=== PATIENT | male | born 1985 | race Hispanic/Latino ===

== ENCOUNTER 2023-11-26 16:45 | Emergency (ER) | payer OTHER, SELFPAY ==
[2023-11-26 17:01] VITALS: BP 127/73; PULSE 78; RESP 16; TEMP 36.4; O2SAT 97; BMI 32.8
--- NOTE | 2023-11-26 17:03 | DI.RAD.S_ITS ---
PROCEDURE: XR TOE RT MIN 2V INDICATIONS: pain dropped propane tank TECHNIQUE: 3 views of the 1st toe(s) acquired. COMPARISON: None. FINDINGS: Bones: Comminuted fracture of the 1st distal phalanx. No intra-articular extension is visualized radiographically. Soft tissues: No suspicious soft tissue densities. IMPRESSION: First distal phalanx comminuted fracture. Approved by: Mireya Taylor M.D.,Ph.D. on 11/26/2023 at 18:43
[2023-11-26 17:09] VITALS: PULSE 68
--- NOTE | 2023-11-26 20:35 | ED_ITS ---
HPI - Extremity Injury (Lower) General Chief Complaint: Extremity Injury, Lower Stated Complaint: Dropped Propane Tank on R Foot, Diabetic Time Seen by Provider: 11/26/23 17:10 Source: patient Mode of arrival: Ambulatory History of Present Illness HPI Narrative: 38-year-old male presents for right great toe injury. He was at work and a heavy propane tank dropped on his foot. He was concerned because he is a diabetic and wants to make sure that his foot will be okay Related Data Previous Rx's Medication Instructions Recorded hydrocodone 5 mg-acetaminophen 325 1 tab PO Q8H PRN pain #5 tabs 11/26/23 mg tablet Allergies Allergy/AdvReac Type Severity Reaction Status Date / Time No Known Drug Allergies Allergy Verified 11/26/23 17:03 Patient History Social History Smoking Status: Never smoker Smoking Status: Never smoker alcohol intake frequency: 0-2 drinks per day Substance Use Type: does not use Exam Initial Vital Signs Initial Vital Signs: Vital Signs Temperature 97.6 F 11/26/23 17:01 Pulse Rate 78 11/26/23 17:01 Respiratory Rate 16 11/26/23 17:01 Blood Pressure 127/73 11/26/23 17:01 Pulse Oximetry 97 11/26/23 17:01 Oxygen Delivery Method Room Air 11/26/23 17:01 Const: Awake, alert, no acute distress, nontoxic appearing MSK: Bruising R great toe, no subungual hematoma, palpable DP pulses Skin: Warm, Dry, intact Neuro: AO x3, CN II-XII grossly intact, moves all extremities Course Orders Ordered: ED Orders 11/26/23 17:03 XR toe RT min 2V Stat Discontinued Medications Hydrocodone Bitart/Acetaminophen (Hydrocodone/Acet 5/325 Prepack) 1 bottle MISC DIRECTED ONE Stop: 11/26/23 20:38 Last Admin: 11/26/23 20:56 Dose: 1 bottle Documented By: CRISS Vital Signs Vital signs: Vital Signs - 8 hr 11/26/23 17:01 11/26/23 17:09 Temperature 97.6 F Pulse Rate 78 Pulse Rate [Dorsalis Pedis] 68 Respiratory Rate 16 Blood Pressure 127/73 Pulse Oximetry 97 Oxygen Delivery Method Room Air MDM - Extremity Injury (Lower) Imaging Data Extremity x-ray #1: Radiologist's Impression: PROCEDURE: XR TOE RT MIN 2V INDICATIONS: pain dropped propane tank TECHNIQUE: 3 views of the 1st toe(s) acquired. COMPARISON: None. FINDINGS: Bones: Comminuted fracture of the 1st distal phalanx. No intra-articular extension is visualized radiographically. Soft tissues: No suspicious soft tissue densities. IMPRESSION: First distal phalanx comminuted fracture. Approved by: Mireya Taylor M.D.,Ph.D. on 11/26/2023 at 18:43 MDM Narrative Medical decision making narrative: Right great toe injury. X-rays show comminuted fracture. Placed in a hard- soled postop shoe for comfort, given crutches for assistance in ambulation. Rice instructions counseled, short course of pain medication sent to pharmacy of choice. Note for work provided Discharge Plan Departure Patient Disposition: Home Clinical Impression: Fracture of toe Instructions: DI for Toe Fracture Activity Restrictions/Additional Instructions: Wear the shoe when walking around to help support your toe. You may use the crutches if you would like to help you move around. Take Tylenol and ibuprofen as needed for pain, elevate your foot above heart level to help decrease swelling, apply ice for comfort. Prescriptions: New hydrocodone-acetaminophen 5-325 mg tablet 1 tab PO Q8H PRN (Reason: pain) Qty: 5 0RF Stand Alone Forms: Patient Portal/API, Work Release Note
[2023-11-26] MEDS: HYDROCODONE/ACET 5/325 PREPACK 1 BOTTLE MISC (20:56)
== END 2023-11-26 21:01 | disposition home or self-care (01) ==
PROVIDERS: Emergency Provider Emergency Medicine
DX: S92.421A Displaced fracture of distal phalanx of right great toe, initial encounter for closed fracture (principal); W22.8XXA Striking against or struck by other objects, initial encounter
CPT/HCPCS: 73660; 99282; 99283

== ENCOUNTER → 2023-12-05 09:19 | Outpatient (CLI) | payer OTHER, SELFPAY ==
--- NOTE | 2023-12-05 09:21 | DI.US.S_ITS ---
PROCEDURE: US ABDOMEN COMPLETE INDICATIONS: RIGHT UPPER QUADRANT PAIN TECHNIQUE: Real-time scanning was performed of the abdominal and retroperitoneal organs, with image documentation. COMPARISON: None. FINDINGS: Liver: Liver is normal in size and demonstrates increased echogenicity. Gallbladder: No gallstones, pericholecystic fluid or gallbladder thickening. Biliary ducts: Intrahepatic bile ducts are non-dilated. Extrahepatic bile duct caliber measures 4 mm. Normal is 6-7 mm or less in diameter, or 10 mm or less post-cholecystectomy. Pancreas: Visualized portions of the pancreas are sonographically normal. Spleen: Spleen is normal in size and homogeneous in echotexture. Kidneys: Kidneys are normal in size and echotexture. Right kidney measures 12.5 cm long; left kidney measures 12.4 cm long. No hydronephrosis or nephrolithiasis. No solid masses. Aorta: Visualized aorta is normal in caliber at less than 3 cm. Iliacs: Proximal common iliac arteries are normal in caliber at less than 2.5 cm. IVC: Intrahepatic inferior vena cava is patent. Miscellaneous: No free abdominal fluid. IMPRESSION: There is hepatic steatosis. The remainder of the abdomen is within normal limits. Dictated by: Faheem Ahumada M.D. on 12/05/2023 at 14:34 Approved by: Faheem Ahumada M.D. on 12/05/2023 at 14:39
== END ==
PROVIDERS: PCP Nurse Practitioner Family; Referring Provider Nurse Practitioner Family; Visit Provider Nurse Practitioner Family
DX: K76.0 Fatty (change of) liver, not elsewhere classified (principal); E11.9 Type 2 diabetes mellitus without complications
CPT/HCPCS: 76700

== ENCOUNTER 2024-03-05 13:22 | Day surgery (SDC) | payer OTHER, SELFPAY ==
--- NOTE | 2024-03-05 14:12 | PM.HP.1 ---
History of Present Illness History of Present Illness Date Patient Seen: 03/05/24 Chief complaint: Colonoscopy Narrative: Rectal bleeding PFSH Social History Smoking Status: Never smoker Meds Home Medications and Allergies Home Medications Medication Instructions Recorded Confirmed Type hydrocodone 5 mg-acetaminophen 325 1 tab PO Q8H PRN pain #5 tabs 11/26/23 Rx mg tablet empagliflozin 10 mg tablet 10 mg PO DAILY 03/05/24 03/05/24 History (Jardiance) metformin 1,000 mg tablet 1,000 mg PO BID 03/05/24 03/05/24 History Allergies Allergy/AdvReac Type Severity Reaction Status Date / Time No Known Drug Allergies Allergy Verified 03/05/24 13:57 Exam Narrative Exam Narrative: Oropharynx free of lesions Chest clear to auscultation percussion Cardiac exam reveals no S3 or murmur Assessment & Plan Assessment & Plan narrative: Rectal bleeding need for colonoscopy for further workup. Risks, benefits, alternatives have been explained. Time-Based Coding :: [TOTAL MINUTES] spent with patient and on the chart (including review of chart, obtaining history, exam, reviewing outside data, placing orders, documenting exam and treatment plan, and counseling patient) on [DATE].
--- NOTE | 2024-03-05 14:13 | PM.OP.COLON ---
Operative Date/Time/Diagnoses Date of procedure: 03/05/24 Pre-op diagnosis: See indication and findings Procedure & Clinicians Study performed: Colonoscopy Indications: Rectal bleeding Surgeon: Jaime Luna Procedure Notes Procedure in detail: After informed consent was obtained the patient placed left lateral decubitus position. The video colonoscope was inserted into the rectum slowly advanced cecum. Preparation was good. On slow withdrawal mucosa was carefully examined. The scope was removed. The patient tolerated procedure well. Blood loss none Complications none Sedation mac Findings 1. Normal colonoscopy to cecum Presumably patient's bleeding was from a perirectal source such as hemorrhoids which is not visible at this time. At suggest follow-up colonoscopy in 10 years.
[2024-03-05 14:20] VITALS: BP 133/86; PULSE 84; RESP 12; TEMP 36.4; O2SAT 97
[2024-03-05 14:38] VITALS: BP 117/69; PULSE 91; RESP 12; TEMP 36.6; O2SAT 97
[2024-03-05 14:44] VITALS: BP 103/79; PULSE 77; RESP 20; O2SAT 97
[2024-03-05 14:48] VITALS: BP 125/84; PULSE 82; RESP 20; O2SAT 95
[2024-03-05 14:53] VITALS: BP 129/79; PULSE 78; RESP 15; TEMP 36.6; O2SAT 97
== END 2024-03-05 15:03 | disposition home or self-care (01) ==
PROVIDERS: PCP Nurse Practitioner Family; Referring Provider Internal Medicine Gastroenterology; Visit Provider Internal Medicine Gastroenterology
PROC: 0DJD8ZZ Inspection of Lower Intestinal Tract, Via Natural or Artificial Opening Endoscopic (ICD-10-PCS; CPT 45378; principal; 2024-03-05 14:30)
DX: K62.5 Hemorrhage of anus and rectum (principal)
CPT/HCPCS: 45378; J2704

== ENCOUNTER → 2025-03-23 14:56 | Outpatient (CLI) | payer OTHER, SELFPAY | PROVIDERS: Referring Provider Urology; Visit Provider Urology | DX: E29.1 Testicular hypofunction (principal) | CPT/HCPCS: 36415; 83002; 84146 ==